=== PATIENT | female | born 1945 | race Caucasian/White ===

== ENCOUNTER 2022-01-03 09:19 | Day surgery (SDC) | payer MEDICARE ==
[~2022-01-03] VITALS: Ht 157.5 cm; Wt 78.0 kg
[2022-01-03] VITALS (8 sets, daily range): BP systolic 149–183; BP diastolic 61–80; PULSE 79–88; TEMP 97.3–97.8
[2022-01-03] MEDS ORDERED: BREO IH (10:13)
[2022-01-03] MEDS ORDERED: EUTHYROX50 MCG PO (10:14)
[2022-01-03] MEDS ORDERED: HCTZ 25MG TAB25 MG PO (10:15)
[2022-01-03] MEDS ORDERED: ZOCOR 20MG20 MG PO (10:16)
[2022-01-03] MEDS ORDERED: PROAIR HFA0.09 MG/AC IH (10:17)
[2022-01-03] MEDS ORDERED: MULTI VITAMINS1 TAB PO (10:17)
[2022-01-03] MEDS ORDERED: NORCO 325 MG-51 TAB PO (12:58)
--- NOTE | 2022-01-03 13:30 | NUR ---
Patient returns to room 2 per cart from PACU and is awake and alert. Temp 97.4 and sats 94% on 2L. Bandaids on abdomen x4 clean and dry. IV fluids infusing RH and site is free of redness. Siderails up x2 or call light in reach. Spouse in room. Taking sips of water. Denies nausea. Encouraged to rest.
--- NOTE | 2022-01-03 13:45 | NUR ---
Continues to rest without complaints. Adjusted head of bed for comfort. Sats 96% on 2L and respirations even and unlabored.
--- NOTE | 2022-01-03 14:00 | NUR ---
Complains of being warm. Extra blankets removed. Cool clothes applied.
--- NOTE | 2022-01-03 14:10 | NUR ---
Assisted up to the bedside commode and is able to void. States that she feels nauseated.
--- NOTE | 2022-01-03 14:25 | NUR ---
Assisted back to the cart. Does have small amount of emesis. Will medicate with Zofran. Cool cloth kept on forehead. States that she just wants to sleep.
--- NOTE | 2022-01-03 14:30 | NUR ---
Resting and cool cloth on the forehead. Spouse in room. Call light in reach.
--- NOTE | 2022-01-03 14:48 | NUR ---
Zofran 4mg IV given. Cool cloth on forehead and is resting. Spouse in room.
--- NOTE | 2022-01-03 15:00 | NUR ---
Resting with eyes closed and not disturbed.
--- NOTE | 2022-01-03 15:30 | NUR ---
Continues to rest with eyes closed and not disturbed.
--- NOTE | 2022-01-03 16:25 | NUR ---
ASSISTED UP TO BEDSIDE COMMODE. IV TO INT. ATTEMPTS BITE OF JELLO AND EATS CRACKERS. STATES THAT SHE WANTS TO GO HOME AND SLEEP. PATIENT IS ABLE TO VOID.
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
== END 2022-01-03 17:40 | disposition home or self-care (01) ==
LOC: SDCO 09:19
DX: K80.10 Calculus of gallbladder with chronic cholecystitis without obstruction (principal); Z87.891 Personal history of nicotine dependence
CPT/HCPCS: J0360; J0690; J1100; J1170; J2405; J2704; J2765; J3010; J7120